=== PATIENT | female | born 1995 | race Caucasian/White ===

== ENCOUNTER 2021-04-17 12:41 | Emergency (ER) | payer OTHER ==
[2021-04-17 12:52] VITALS: BP 95/61; PULSE 96; TEMP 98.3; BMI 20.3
== END 2021-04-17 13:50 | disposition home or self-care (01) ==
LOC: JERFT 12:41
DX: S93.491A Sprain of other ligament of right ankle, initial encounter (principal); X50.0XXA Overexertion from strenuous movement or load, initial encounter; Y93.01 Activity, walking, marching and hiking
CPT/HCPCS: 73610-TC-RT-FY; 73630-TC-RT-FY; 99283-25